=== PATIENT | female | born 1940 | race Caucasian/White ===

== ENCOUNTER 2017-05-31 07:50 | Day surgery (SDC) | payer OTHER, BC ==
[2017-05-25 16:09] VITALS: BMI 31.8
[2017-05-31] MEDS ORDERED: BACITRACIN 3.5 GM OPTHALMIC OINT TUBE ONE (10:30)
[2017-05-31] MEDS ORDERED: TETRACAINE 0.5% OPHTH SOLN 2 ML BOTTLE ONE (10:31)
[2017-05-31] MEDS ORDERED: BUPIVACAINE HCL/PF 0.5% (5MG/ML) 10 ML VIAL ONE (10:31)
[2017-05-31] MEDS ORDERED: GUM MASTIC/STORAX/MSAL/ALCOHOL 1 DRP DROPSBTL MC ONE (10:31)
[2017-05-31] MEDS ORDERED: LIDOCAINE 1%/EPI 1:100000 (20 ML MULTI DOSE VIAL) ONE (10:31)
[2017-05-31] MEDS ORDERED: POVIDONE-IODINE 5% OPHTHALMIC PREP 30 ML SOLUTION ONE (10:31)
[2017-05-31] MEDS ORDERED: ACETAMINOPHEN 500 MG TABLET (FP) PO PRN (11:08)
[2017-05-31] MEDS ORDERED: MIDAZOLAM HCL 2 MG/2 ML SINGLE DOSE VIAL ONE (11:13)
[2017-05-31] MEDS ORDERED: PROPOFOL 20 ML ONE ×2 (11:50)
[2017-05-31] MEDS ORDERED: ceFAZolin SODIUM 1 GM VIAL ONE (11:55)
[2017-05-31] MEDS ORDERED: ePHEDrine SULFATE 50 MG/1 ML AMPULE ONE (12:21)
[2017-05-31] MEDS ORDERED: ONDANSETRON 4 MG/2 ML VIAL ONE (12:34)
[2017-05-31] MEDS ORDERED: DEXAMETHASONE SOD PHOSPHATE 4 MG/1 ML VIAL ONE (12:34)
[2017-05-31] MEDS ORDERED: ONDANSETRON 4 MG/2 ML VIAL IVPUSH PRN (12:57)
[2017-05-31] MEDS ORDERED: oxyCODONE HCL 5 MG TABLET PO PRN (12:57)
[2017-05-31] MEDS ORDERED: LACTATED RINGERS SOLUTION 1,000 ML IV SCH (13:00)
[2017-05-31 14:41] VITALS: TEMP 97.8
[2017-05-31 14:45] VITALS: BP 144/66; PULSE 76
--- NOTE | 2017-06-01 09:30 | OP ---
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 PROCEDURE: Repair of cicatricial entropion, left lower lid with marginal lid split and anterior lamella recession. ANESTHESIA: Local with sedation. COMPLICATIONS: None. ESTIMATED BLOOD LOSS: 5-10 mL DESCRIPTION OF OPERATION: Patient was brought to the operating room, placed on the operating room table. Vital signs were monitored by Anesthesia. The actual margin or division between the tarsus and the skin muscle of the lower lid on the left side was marked. Timeout was performed. Tetracaine was placed in both eyes, and after intravenous sedation, a 50/50 mixture of 2% Xylocaine and 1:100,000 epinephrine and 0.5% Marcaine was injected subcutaneously along the entire lower lid for 4 mL. The patient was prepped and draped in the usual sterile fashion, exposing both eyes. Using an 11 blade and an Adson forceps, the margin was incised just anterior to meibomian glands from the punctum to the lateral canthus. Then, using Bogdan scissors, this was deepened, making sure that all of the lash roots were in the anterior lamella and the tarsus was in the posterior lamella, and this was carried down through full-thickness tarsus until the septum was identified. Then, dissection was carried down in the postorbicularis plane and preseptal plane. The anterior lamella was then recessed, and it was recessed as much as could be recessed without cutting the eyelid any further than it had already been cut nasally and temporally. It was secured there with three double-armed 4-0 chromic sutures, grabbing the septum inferiorly and then exiting through the full-thickness eyelid below the lash line. Then, a second row of these 3 sutures just above the first row, and these were passed through the marginal lash line of the left lower lid, recessing it at least 4-5 mm from the margin of the posterior lamella. All these sutures were tied. Antibiotic irrigation was used. Cautery was used as necessary, and this completed recession of the marginal lid split of the lower lid across the full length of the lid with a skin/muscle flap recession to recess the lash line of the left lower lid. Bacitracin ointment was placed in the eye, and then, the eye was closed. Telfa and eye pads of fluff were placed over the eye and taped there, and the patient was taken to recovery room in stable condition. SARAH KILPATRICK M.D. [id number]
== END 2017-05-31 14:35 | disposition home or self-care (01) ==
LOC: FASU 07:50
PROVIDERS: ATTEND Ophthalmology
PROC: 08SR0ZZ Reposition Left Lower Eyelid, Open Approach (ICD-10-PCS; principal; 2017-05-31 12:16)
DX: H02.015 Cicatricial entropion of left lower eyelid (principal); H02.014 Cicatricial entropion of left upper eyelid; H02.011 Cicatricial entropion of right upper eyelid; H02.012 Cicatricial entropion of right lower eyelid; H40.9 Unspecified glaucoma; I10 Essential (primary) hypertension; E78.5 Hyperlipidemia, unspecified
CPT/HCPCS: 94760

== ENCOUNTER 2017-08-23 08:01 | Day surgery (SDC) | payer OTHER, BC ==
[2017-08-22 13:38] VITALS: BMI 32.9
[~2017-08-23 08:01] MED LIST: LACTATED RINGERS SOLUTION 1,000 ML IV SCH; ONDANSETRON 4 MG/2 ML VIAL IVPUSH PRN; oxyCODONE HCL 5 MG TABLET PO PRN
[2017-08-23] MEDS ORDERED: BUPIVACAINE HCL/PF 0.5% (5MG/ML) 10 ML VIAL IJ ONE (09:26)
[2017-08-23] MEDS ORDERED: TETRACAINE 0.5% HCL 0.6ML DROPPER.BOTTLE OS ONE (09:26)
[2017-08-23] MEDS ORDERED: LIDOCAINE 1%/EPI 1:100000 (20 ML MULTI DOSE VIAL) INF ONE (09:26)
[2017-08-23] MEDS ORDERED: POVIDONE-IODINE 5% OPHTHALMIC PREP 30 ML SOLUTION ONE (09:38)
[2017-08-23] MEDS ORDERED: BACITRACIN 3.5 GM OPTHALMIC OINT TUBE OS ONE ×2 (09:45→11:02)
[2017-08-23] MEDS ORDERED: BACITRACIN 50,000 UNITS VIAL TP ONE (09:47)
[2017-08-23] MEDS ORDERED: ONDANSETRON 4 MG/2 ML VIAL ONE (10:18)
[2017-08-23] MEDS ORDERED: PROPOFOL 20 ML ONE (10:18)
[2017-08-23] MEDS ORDERED: DEXAMETHASONE SOD PHOSPHATE 4 MG/1 ML VIAL ONE (10:18)
[2017-08-23] MEDS ORDERED: EPINEPHrine 1:1,000 1 MG/1 ML - 30ML VIAL (INJECTION) ONE (10:30)
[2017-08-23 12:31] VITALS: TEMP 98.4
[2017-08-23 14:04] VITALS: BP 138/69; PULSE 72
--- NOTE | 2017-08-24 15:36 | OP ---
DATE OF OPERATION: 08/23/2017 PREOPERATIVE DIAGNOSIS: Recurrent cicatricial entropion, left lower lid, and fibrosis. POSTOPERATIVE DIAGNOSIS: Recurrent cicatricial entropion, left lower lid, and fibrosis. PROCEDURES: Marginal lid split, left lower lid. Skin-muscle flap creation with recession of skin-muscle flap to the inferior eyelid and fixation in that location. Excision of lash line. Mucous membrane graft from the left lower lip to the left lower lid margin. SURGEON: Sarah Kilpatrick MD ANESTHESIA: Local with sedation. COMPLICATIONS: None. ESTIMATED BLOOD LOSS: 3 to 5 mL. OPERATIVE REPORT: The patient was brought to the operating room and placed on the operating room table . A timeout was performed and was injected subcutaneously throughout the left lower lid for a total of 3 or 4 mL . The patient was prepped and draped in the usual sterile fashion, exposing both eyes and the entire face in preparation for a lip graft. The left lower lid was examined and difficult to antolin. It was incised anterior to the tarsal plate, posterior to the lash line, and this dissection was carried down with the Bogdan scissors. As soon as the tarsal plate was exposed, a 4-0 silk traction suture was used to secure the central tarsus superiorly, placing the lid on stretch, and dissection was carried down the space along the septum toward the inferior orbital rim. Good hemostasis was achieved with a [place] needle and antibiotic irrigation was used throughout the case. The lash line was now with chaotic lashes, which had been previously frozen and had recurred twice, was now excised across the width of the lid skin-muscle flap was secured to the middle lamella using a row of double-armed 4-0 chromic sutures and then cephalad with a row of 5-0 chromic sutures. These were passed through full thickness anterior to lamella, grabbing septum below it and plicating it in a double-row fashion, recessing it approximately 8 to 10 mm across the eyelid. A template was placed over this and cut to the size of the defect. Double gloves were used and the mouth was now explored. The lip was everted. Template was used to kamlesh the mucous membranes graft site. epinephrine was injected around the graft and then the lip was firmed up by injection of injectable saline. Graft was harvested with a 15-blade submucosal plane. Minor salivary glands were excised and cautery was used for hemostasis. The graft was then soaked in antibiotics. It was thinned of all submucosal tissue and it was then sutured into the lower lid. The upper lid was secured out of the way with a single 4-0 silk suture through the anterior lash line, essentially after a small amount of anesthetic was administered. This was clamped superiorly with a hemostat, allowing visualization of the lower lid. The graft was tailored to the defect. It was secured with two interrupted 6-0 plain sutures, one nasally and temporally for the horizontal extent of the graft. The 6-0 plain suture was then run continuously through the graft in the tarsal plate, reattaching it to the superior edge of the new lid margin. Inferiorly, it was again tailored as needed and sutured with running and interrupted 6-0 plain sutures to the recessed skin-muscle flap. Two quilting sutures were used to secure the graft to the host bed, one nasally and one temporally. These were double-armed 5-0 chromic sutures and they secured the graft to the host bed in addition to the perimeter. Strip Telfa, bacitracin ointment, and then a dental roll were then placed over the graft and this was tied over with a 4-0 silk suture below the graft and tied to the marginal suture which had been previously placed through the tarsal plate. These were tied, securing the dental roll and Telfa over the graft. The eye was closed. Bacitracin ointment was placed diffusely around the eye and around the dental roll and strip Telfa and an eye patch with fluffs was taped over the eye with paper tape and Mastisol. The lip had been packed with a gauze soaked with lidocaine and epinephrine and this was now removed and it was found to be hemostatic. The patient was taken to the recovery room in stable condition. SARAH KILPATRICK M.D. [id number]
--- NOTE | 2017-08-26 16:28 | PATH ---
Surgical Pathology Report Patient Name: SYD OLGUIN [facility]. Rec. #: [id number] /Age/Gender: 1940 (Age: 76) / F Account: [id number] Location: [facility] AMBULATORY Taken: 08/23/2017 Received: 08/23/2017 Reported: 08/26/2017 Physicians: Jh Urias Specimen(s) Received LEFT LOWER LASH LINE Clinical History Cicatricial entropion Final Diagnosis LEFT LOWER LASH LINE, REPAIR: SKIN SHOWING VASCULAR CONGESTION, MARKED CHRONIC INFLAMMATION AND DERMAL FIBROSIS. Electronically Signed Magda Freire M.D. Gross Description Received in formalin labeled "left lower lash line," is a 1.5 x 0.1 cm chavez, elliptical, unoriented portion of hair-bearing skin excised to a depth of 0.1 cm. No discrete lesions are identified. The specimen is submitted in toto in one cassette. 08/24/201708/24/2017
== END 2017-08-23 13:15 | disposition home or self-care (01) ==
LOC: FASU 08:01
PROVIDERS: ATTEND Ophthalmology
PROC: 08URX7Z Supplement Left Lower Eyelid with Autologous Tissue Substitute, External Approach (ICD-10-PCS; 2017-08-23)
PROC: 0KX10ZZ Transfer Facial Muscle, Open Approach (ICD-10-PCS; 2017-08-23)
PROC: 08BR0ZZ Excision of Left Lower Eyelid, Open Approach (ICD-10-PCS; principal; 2017-08-23 09:44)
DX: H02.055 Trichiasis without entropion left lower eyelid (principal); H50.60 Mechanical strabismus, unspecified; H02.015 Cicatricial entropion of left lower eyelid
CPT/HCPCS: 88304-TC; 94760

== ENCOUNTER 2018-09-05 07:04 | Day surgery (SDC) | payer OTHER, BC ==
[2018-08-31 16:41] VITALS: BMI 33.8
[2018-09-05] MEDS ORDERED: ERYTHROMYCIN 0.5% OPHTHALMIC OINTMENT 3.5 GM TUBE ONE (07:09)
[2018-09-05] MEDS ORDERED: TETRACAINE 0.5% OPHTH SOLN 2 ML BOTTLE ONE (07:10)
[2018-09-05] MEDS ORDERED: POVIDONE-IODINE 5% OPHTHALMIC PREP 30 ML SOLUTION ONE (07:10)
[2018-09-05] MEDS ORDERED: LIDOCAINE 1%/EPI 1:100000 (20 ML MULTI DOSE VIAL) ONE (07:10)
[2018-09-05] MEDS ORDERED: BUPIVACAINE HCL/PF 0.5% (5MG/ML) 10 ML VIAL ONE (07:10)
[2018-09-05] MEDS ORDERED: MIDAZOLAM HCL 2 MG/2 ML SINGLE DOSE VIAL ONE (09:34)
[2018-09-05] MEDS ORDERED: ROCURONIUM BROMIDE 50 MG/5 ML VIAL ONE (09:34)
[2018-09-05] MEDS ORDERED: CLINDAMYCIN PHOSPHATE 600 MG/4 ML VIAL ONE (10:12)
[2018-09-05] MEDS ORDERED: VASOPRESSIN 20 UNITS/ML VIAL IV ONE (10:24)
[2018-09-05] MEDS ORDERED: DEXAMETHASONE SOD PHOSPHATE 4 MG/1 ML VIAL ONE (10:29)
[2018-09-05] MEDS ORDERED: ONDANSETRON 4 MG/2 ML VIAL ONE ×2 (10:29→11:43)
[2018-09-05] MEDS ORDERED: ePHEDrine SULFATE 50 MG/1 ML AMPULE ONE (10:38)
[2018-09-05] MEDS ORDERED: NEOSTIGMINE METHYLSULFATE 0.5 MG/ML - 10 ML MDV ONE (11:30)
[2018-09-05] MEDS ORDERED: GLYCOPYRROLATE 0.2 MG/1 ML VIAL ONE (11:30)
[2018-09-05] MEDS ORDERED: oxyCODONE HCL 5 MG TABLET PO PRN (12:03)
[2018-09-05] MEDS ORDERED: ONDANSETRON 4 MG/2 ML VIAL IVPUSH PRN (12:03)
[2018-09-05] MEDS ORDERED: LACTATED RINGERS SOLUTION 1,000 ML IV SCH (12:15)
[2018-09-05] MEDS ORDERED: ACETAMINOPHEN 325 MG TABLET (FP) PO ONE (13:11)
[2018-09-05 14:19] VITALS: TEMP 97.8
[2018-09-05 14:27] VITALS: BP 128/48; PULSE 88
--- NOTE | 2018-09-06 09:02 | OP ---
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 POSTOPERATIVE DIAGNOSIS: Cicatricial retraction with keratitis of the left lower lid including foreshortening of the inferior fornix. PROCEDURES: 1. Recession of retractor with conjunctivoplasty, left inferior fornix. 2. Hard palate mucosal graft from left hemipalate, left lower lid. 3. Lateral tarsal strip, left lower lid. 4. James suture x2, left lower lid. SURGEON: Sarah Kilpatrick MD ANESTHESIA: General. COMPLICATIONS: None. ESTIMATED BLOOD LOSS: 10 mL to 20 mL. OPERATIVE REPORT: The patient was brought to the operating room and placed on the operating room table. Vital signs were monitored by Anesthesia. Tetracaine was placed in both eyes. Patient was placed under general anesthesia and intubated. Timeout was performed. The lateral canthus was marked in the left lateral canthus. A 50/50 mixture of 2% xylocaine 1:100,000 epinephrine and 0.5% Marcaine was injected in lateral canthus down to the periosteum, subconjunctivally in left lower lid, and subcutaneously in the left lower lid for a total of 5 to 6 mL. The patient was prepped and draped the usual sterile fashion exposing both eyes. The right eye was taped closed with a Steri-Strip. Silk 4-0 traction sutures were passed through a central lid margin. It was difficult to antolin the lid and raise the lid due to resistance in the middle of lamellae. A lateral canthal incision was made at the lateral canthus, and Bogdan scissors were used to divide the two lids and the inferior reny of the lateral canthal tendon was released. This allowed eversion of the lid slightly, and full thickness tarsal incision was made through conjunctival retractors and scar tissue in the left lower lid from the punctum into the lateral canthal opening releasing all scar tissue and recessing the retractors and recessing the scarred conjunctivae and thus exposing the postauricular surface. This allowed for elevation and eversion of the left lower lid. A template was then placed into the defect, the graft on stretch, and this was then tailored to fit the defect. Double gloves were used, and it was placed over the left hemipalate and marked with a sterile marking pen. The left hemipalate, it should be noted, had been injected with at the same time as the eyelid with a different syringe with a 25-gauge needle for a total of 3 to 4 mL. Both the entire palate had been injected for hemostasis. At this point, the large Malleable was used to retract the tongue, and a bite block was placed without undue tension on the left side of the mouth holding the mouth open. The perimeter of the graft was then incised with a 15 blade after being marked, and it was then harvested with a combination of a [place] blade bent at a 45-degree angle and a long Metzenbaum scissors. Graft was removed. Hemostasis was achieved with Bovie cautery with the oxygen turned down, and a packing with surgicel was placed into the defect where the graft had been harvested from the donor site. The graft was then thinned of all subcutaneous tissue creating a nice mucosal graft. Double gloves were removed, and the graft was placed into the lower lid defect. It was everted and sutured along the superior edge of the defect with a running buried 5-0 chromic, and it was sutured to the inferior edge of the recessed conjunctivae and retracted with an interrupted running 6-0 chromic suture. Four quilting suture of double-arm 5-0 chromic was used to secure the graft to the host bed with a double-arm mattress fashion exiting on the skin. The lateral tarsal strip was then reattached to the superior reny, lateral canthus, and periosteum with a double-arm 5-0 Prolene without undue tension on this closure because the lid previously had been overly tightened by my estimation. The lateral canthal angle was performed with a gomez 5-0 chromic with gomez line in the upper and lower lid. The lateral tarsal strip was then secured to the periosteum as well with a 5-0 chromic, and the wound at the lateral canthus, after antibiotics irrigation, was closed with 5-0 chromic buried and 6-0 plain interrupted sutures. Two double-arm 4-0 silk sutures were passed through a number 8 red rubber catheter, bolsters were passed through the skin and gomez line of the lid and nasally and temporally. Bacitracin ointment was placed generously in the eye between the graft and the eye and on the sutures on the outside of lower lid, and the 4-0 sutures were then secured to the forehead with Mastisol and Steri-Strips. Strip Telfa and eye patch with fluff were gently taped over the eye for gentle pressure on the graft. Attention was turned to the roof of the mouth again. There was some further oozing which was cauterized with the oxygen turned down once more until good hemostasis was evident. Bite block was removed as was the Malleable and any packing noted in the posterior pharynx, and the patient was taken to the recovery room after extubation. SARAH KILPATRICK M.D. [id number]
== END 2018-09-05 14:10 | disposition home or self-care (01) ==
LOC: FASU 07:04
PROVIDERS: ATTEND Ophthalmology
PROC: 08BR0ZZ Excision of Left Lower Eyelid, Open Approach (ICD-10-PCS; 2018-09-05)
PROC: 08QRXZZ Repair Left Lower Eyelid, External Approach (ICD-10-PCS; 2018-09-05)
PROC: 08BR0ZZ Excision of Left Lower Eyelid, Open Approach (ICD-10-PCS; principal; 2018-09-05 10:15)
DX: H02.115 Cicatricial ectropion of left lower eyelid (principal); H16.8 Other keratitis
CPT/HCPCS: 94760